=== PATIENT | female | born 1980 | race Caucasian/White ===

== ENCOUNTER 2020-05-17 18:30 | Emergency (ER) | payer OTHER ==
[~2020-05-17] VITALS: Ht 160 cm; Wt 63.5 kg
[~2020-05-17 18:30] MED LIST: ABI10 PO; FLUO-387 PO; TRAZ-471 PO
[2020-05-17 18:40] VITALS: BP 131/50
--- NOTE | 2020-05-17 18:55 | NUR ---
PT SEEN AND EVALUATED BY MADY LOCKE. NO NURSING CARE RENDERED.
--- NOTE | 2020-05-17 19:56 | NUR ---
Patient discharged with v/s stable. Written and verbal after care instructions given and explained. Patient verbalized understanding. Ambulatory with steady gait. All questions addressed prior to discharge. Advised to follow up with PMD.
== END 2020-05-17 19:56 | disposition home or self-care (01) ==
LOC: MED 18:30
DX: M25.562 Pain in left knee (principal); M25.572 Pain in left ankle and joints of left foot; V89.2XXA Person injured in unspecified motor-vehicle accident, traffic, initial encounter; Y93.89 Activity, other specified; Y92.410 Unspecified street and highway as the place of occurrence of the external cause; Y99.8 Other external cause status
CPT/HCPCS: 73590; 99283